=== PATIENT | female | born 1995 | race Caucasian/White ===

== ENCOUNTER → 2017-08-17 | Outpatient (CLI) | payer OTHER ==
--- NOTE | 2017-08-18 08:20 | US ---
THYROID ULTRASOUND CLINICAL INFORMATION: Disorder of thyroid gland. TECHNIQUE: Routine transcutaneous scannin-D and Doppler modes. COMPARISON: None. FINDINGS: Thyroid size: Right 4.3 x 1.3 x 1.1 cm. Left 4.7 x 1.3 x 1.1 cm. Isthmus 3.0 mm thickness. Texture: Heterogeneous left lobe. Estimated total number of nodules >/=1 cm: 1 Number of spongiform nodules >/=2 cm not described below (TR1): 0 Number of mixed cystic and solid nodules >/=1.5 cm not described below (TR2): 0 Nodule #: 1 Maximum size: 1.0 cm; All dimensions 0.6 x 0.4 cm Location: left; lower Composition: cystic/almost completely cystic (0) Echogenicity: hypoechoic (2) Shape: not [id number] (0) Margins: smooth (0) Echogenic foci: none (0) ACR TI-RADS total points: 4. ACR TI-RADS risk category: TR4 (4-6 points) ACR TI-RADS recommendation: Follow-up ultrasound in 1 year Scanning of the soft tissues around the thyroid gland shows no evidence of distinct solid mass or cyst. No large calcifications are or parenchymal edema. Overlying skin tissues unremarkable. Normal vascularity. IMPRESSION: 1. 1 cm hypoechoic solid nodule in the inferior left lobe. ACR TI RADS risk category TR 4. Follow-up ultrasound in one year is recommended according to ACR TI RADS recommendations. See below.* 2. Soft tissues around the thyroid gland are unremarkable. *ACR TI-RADS recommendations: TR5 (>/=7 points) - FNA if >/=1 cm, follow-up if 0.5 - 0.9 cm every year for 5 years TR4 (4-6 points) - FNA if >/=1.5 cm, follow-up if 1 - 1.4 cm in 1, 2, 3 and 5 years TR3 (3 points) - FNA if >/=2.5 cm, follow -up if 1.5 - 2.4 cm in 1, 3 and 5 years TR2 (2 points) and TR1 (0 points) - No FNA or follow-up * ACR TI-RADS recommends that no more than two nodules with the highest ACR TI-RADS total point should be biopsied and no more than four nodules should be followed. Electronically signed by: Shawn Beck MD 08/18/2017 8:19 AM CDT
== END ==
LOC: US 10:10
PROVIDERS: ATTEND Nurse Practitioner Family
DX: E07.9 Disorder of thyroid, unspecified (principal); E04.1 Nontoxic single thyroid nodule